=== PATIENT | male | born 1985 | race Caucasian/White ===

== ENCOUNTER 2022-01-31 18:31 | Observation (INO) ==
[2022-01-31 19:25] LABS: ABS Eosinophils 0.2 10^3/ul (0-0.6); ABS Lymphocytes 3.4 10^3/ul (1.0-4.8); ABS Monocytes 0.6 10^3/ul (0-0.8); ABS Neutrophils 3.6 10^3/ul (1.5-7.7); Eosinophil % 2.2 %; Hematocrit 38 % (42-52); Mean Corpuscular HGB Conc 34 g/dL (31-36); Mean Corpuscular Hemoglobin 33 pg (27-31); Mean Corpuscular Volume 98 fL (80-94); Mean Platelet Volume 7.7 fL (7.4-10.4); Nucleated Red Blood Cells % 0.1; Platelet Count 255 10^3/uL (150-450); Red Blood Count 3.92 10^6 /uL (4.18-5.48); Red Cell Distribution Width 13 % (10-15); White Blood Count 7.8 10^3/uL (3.5-10.8)
[2022-01-31 19:43] LABS: Urine Benzodiazepine Screen Presumptive Positive (None Detect); Urine Cannabinoids Screen Presumptive Positive (None Detect); Urine Opiates Screen None Detected (None Detect)
[2022-01-31 20:09] LABS: Albumin 4.3 g/dL (3.2-5.2); Albumin/Globulin Ratio 1.8 (1-3); C Reactive Protein 1.81 mg/L (<8.01); Calcium 9.2 mg/dL (8.6-10.3); Globulin 2.4 g/dL (2-4); Magnesium 1.7 mg/dL (1.9-2.7); Potassium 3.7 mmol/L (3.5-5.0); Total Bilirubin 0.3 mg/dL (0.2-1.0); Total Protein 6.7 g/dL (6.4-8.9)
[2022-01-31 23:12] LABS: Carbamazepine 12.6 mcg/mL (4.0-12.0)
[2022-01-31] MEDS ORDERED: Valproic Acid IV 750 MG in NS 0.9% 100 ml BAG 100 ML IVPB ONE (23:16)
[2022-01-31] MEDS ORDERED: LORazepam 2 mg VIAL 1 ml IV ONE (23:22)
[2022-01-31] MEDS ORDERED: Lorazepam PYXIS KEY PRN (23:22)
[2022-01-31] MEDS ORDERED: LORazepam 2 mg VIAL 1 ml ONE (23:29)
[2022-01-31] MEDS ORDERED: Nicotine PATCH 21 MG/24 HR PATCH TRANSDERM ONE (23:56)
[2022-02-01 00:09] LABS: Prolactin 5.9 ng/mL (1.0-20.0)
[2022-02-01] MEDS ORDERED: Magnesium Sulfate IV 1GM/100ML 1 GM/100 ML BAG IV ONE (00:14)
[2022-02-01 01:05] LABS: Folate 11.96 ng/mL (5.90-24.80)
[2022-02-01 01:43] LABS: Urine Appearance Clear; Urine Bilirubin Negative (Negative); Urine Blood Negative (Negative); Urine Color Yellow; Urine Glucose Negative (Negative); Urine Ketones Negative (Negative); Urine Nitrite Negative (Negative); Urine Protein Negative (Negative); Urine Specific Gravity 1.017 (1.002-1.030); Urine Urobilinogen Negative (Negative)
[2022-02-01] MEDS: Enoxaparin 40 MG/0.4 ML SYR SUBCUT SCH (04:39)
[2022-02-01] MEDS ORDERED: LORazepam 2 mg VIAL 1 ml IV PUSH ONE (11:24)
[2022-02-02 06:22] LABS: ABS Eosinophils 0.1 10^3/ul (0-0.6); ABS Lymphocytes 2.5 10^3/ul (1.0-4.8); ABS Monocytes 0.4 10^3/ul (0-0.8); ABS Neutrophils 2.4 10^3/ul (1.5-7.7); Eosinophil % 2.5 %; Hematocrit 37 % (42-52); Hemoglobin 12.4 g/dL (14.0-18.0); Lymphocyte % 45.5 %; Mean Corpuscular HGB Conc 34 g/dL (31-36); Mean Corpuscular Hemoglobin 33 pg (27-31); Mean Corpuscular Volume 97 fL (80-94); Mean Platelet Volume 8.1 fL (7.4-10.4); Nucleated Red Blood Cells % 0.2; Platelet Count 246 10^3/uL (150-450); Red Cell Distribution Width 13 % (10-15); White Blood Count 5.5 10^3/uL (3.5-10.8)
[2022-02-02 06:47] LABS: Blood Urea Nitrogen 6 mg/dL (6-24); CO2 Carbon Dioxide 28 mmol/L (22-32); Calcium 8.5 mg/dL (8.6-10.3); Chloride 109 mmol/L (101-111); Glucose 92 mg/dL (70-100); Sodium 140 mmol/L (135-145); eGFR CKD-EPI 131.7 (>60)
[2022-02-02 06:50] LABS: Anion Gap 3 mmol/L (2-11)
[2022-02-02 08:01] VITALS: BP 141/80
[2022-02-02] MEDS: Enoxaparin 40 MG/0.4 ML SYR SUBCUT SCH ×2 (09:26→09:30)
== END 2022-02-02 10:25 | disposition home or self-care (01) ==
LOC: ED 18:31 → EDHOLD 18:31 → MED 02-01 04:00 → ICU 02-01 12:32
PROVIDERS: ADMIT Internal Medicine; ATTEND Internal Medicine